=== PATIENT | female | born 1985 ===

== ENCOUNTER 2024-07-27 06:28 | Day surgery (SDC) | payer BC, SELFPAY ==
[2024-07-14 10:00] VITALS: BMI 21.9
[2024-07-14 10:56] LABS: Hematocrit 36.3 % (37.0-47.0); Hemoglobin 12.8 g/dL (12.0-16.0); Mean Corp Hgb Conc. 35.3 g/dL (33.0-37.0); Mean Corpuscular Hgb 30.5 pg (27.0-31.0); Mean Corpuscular Volume 86.6 fL (81.0-99.0); Mean Platelet Volume 10.8 fL (7.4-10.4); Platelet Count 242 10^3/uL (130-400); Red Blood Cell Count 4.19 10^6/uL (4.20-5.40); Red Cell Dist. Width 11.9 % (11.5-14.5); White Blood Cell Count 5.3 10^3/uL (4.8-10.8)
[2024-07-14 11:19] LABS: ALT (SGPT) 28 U/L (0-35); AST (SGOT) 26 U/L (14-36); Albumin 4.4 g/dl (3.5-5.0); Alkaline Phosphatase 36 U/L (38-126); Blood Urea Nitrogen 11 mg/dl (7-17); Calcium 8.9 mg/dl (8.4-10.2); Carbon Dioxide 29 mmol/L (22-30); Chloride 101 mmol/L (98-107); Estimated Creatinine Clearance 69 ml/min; Glucose 81 mg/dl (70-99); Potassium 3.6 mmol/L (3.5-5.1); Sodium 143 mmol/L (135-145); Total Bilirubin 0.2 mg/dl (0.2-1.3); Total Protein 6.6 g/dl (6.3-8.2); eGFR > 60.00
[2024-07-14 11:38] LABS: % Basophils 0.2 % (0-2); % Eosinophils 1.9 % (0-6); % Immature Granulocytes 0.2 % (0-0.5); % Lymphocytes 42.9 % (20.5-51.1); % Neutrophils 47.8 % (42.2-75.2); Absolute Eosinophils 0.1 10^3/uL (0-0.7); Absolute Lymphocytes 2.3 10^3/uL (1.2-3.4); Absolute Monocytes 0.4 10^3/uL (0.1-0.6); Absolute Neutrophils 2.6 10^3/uL (1.4-6.5); Nucleated Red Blood Cells % 0 %
--- NOTE | 2024-07-26 06:21 | HPS.HSE ---
Family Physician
-
Family Physician: ANDREAS Chan
Chief Complaint
-
NA
History of Present Illness
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
smears�due�to�ongoing�pregnancies.�ervical�biopsy�shows�HSIL�LELI�2,�ECC�shows�fragments�of�high�grade squamous�dysplasia.�LEEP�procedure�was�performed�Roxann��that�shows�focal�dysplastic�epithelium�present�near�the
endocervical�margin�at�3�6�o'clock,�ECC�shows�multiple�disrupted�fragments�of�HSIL.�Given�these�results�she�was�advised�to undergo�conization.�On�[place]�1�she�underwent�a�cold�knife�cone�biopsy�which�resulted�with�HSIL�ELLI�3,�resection�margins
are�negative�for�HSIL.�There�is�diffuse�p16�and�increased�Ki�67�proliferative�index.�ECC�shows�again�fragments�of�high�grade squamous�intraepithelial�lesion.�This�case�was�reviewed�with�me�by�Dr�Parameshwaran.�Decision�was�made�to�have�a�second
opinion�prior�to�next�steps.
Surgical�History C��section/�07/04/2015,� ,Kidney�stone�removal/�2006,2009,2019 leep�12/26/2023 conization/�
Allergies amoxicillin
Medications
sertraline�100�mg�tablet 03/29/2024 0 1�p.o.�q.�day
Wellbutrin�SR�150�mg�tablet,�12�hr�sustainedrelease
Social�History Patient�denies�ever�using�tobacco. Social�use�of�alcohol. special�education�coordinator Patient�has�not�had�any�occupational�exposure. Marital�Status:�Patient�is� Gynecological�History
Age�at�Menarche�13�years.�Patient�reports�2�pregnancies.�Her�age�at�first�full�term��was�29�years. Family�Medical�History Maternal�aunt�/�breast�cancer obesity/�mother hypertension/�mother,�father
Medical History
Past Medical History
Past Medical History: Reports None
Past Surgical History: Reports None
Social History
Alcohol: Occasional
Drug: None
Family History
Family History: Not pertinent
Allergies / Home Medications
Allergies reflects when Allergies were last updated in [facility].
Home Medications with original date entered in [facility]
Allergy/Medication List:
amoxicillin
Review of Systems
-
History Source: Patient
A 12 point ROS was completed and negative except as noted: Yes
Physical Exam
Vital Signs
Physical�Exam
Pelvic�Examination:�motor coach driver�present External�normal�labia,�urethra,�anus.� Vagina:�Normal�mucosa.� Cervix:�scarred�appearance,�no�discharge.�pap�done Uterus:�normal�size.� Adnexa:�No�pelvic�mass.� RVE:�no�masses�or�nodularity
General:�Well�developed,�well�nourished�patient.�In�no�acute�distress.
Neck:�No�thyromegaly.�No�cervical�lymphadenopathy.
Lungs:�Clear�to�auscultation.�Good�air�movement�bilaterally.
Cardiac:�Regular�rate.�Regular�rhythm.�No�murmurs�appreciated.
Right�Breast:�No�masses�or�dimpling.�No�nipple�discharge. Left�Breast:�No�masses�or�dimpling.�No�nipple�discharge. Abdomen:�Abdomen�is�soft.�Non�tender�to�palpation.�Non�distended.
Extremities:�No�edema. Hematologic/Lymphatic:�No�palpable�lymphadenopathy. Musculoskeletal:�Normal�range�of�motion.�Strength�and�Tone�are�normal.
Skin:Non�jaundiced.�No�petechia.�No�purpura.
Neurologic:�Speech�is�fluent.�Normal�gait�and�station.�Cranial�nerves�intact.
Physical Exam
General: Well Developed
HEENT: NormoCephalic
Respiratory: Clear and Non Labored Respirations
Cardiac: S1/S2 and Regular Rhythm
GI: Soft, Non Tender and Non Distended
Laboratory Results
-
07/14/24 09:12
07/14/24 09:12
Laboratory Results
Total Bilirubin 0.2 mg/dl (0.2-1.3) 07/14/24 09:12
AST 26 U/L (14-36) 07/14/24 09:12
ALT 28 U/L (0-35) 07/14/24 09:12
Alkaline Phosphatase 36 U/L (38-126) L 07/14/24 09:12
MRI pelvis:
Technique: Pre- and postcontrast MRI of the pelvis was performed on a 3 Mikayla superconducting magnet utilizing a standard protocol. Intravenous contrast: 10 cc MultiHance Contrast or Injection Event: None Comparison: CT abdomen and pelvis 03/17/2020
Findings: Uterus: The uterus is anteverted and retroflexed measuring 9.8 x 6.2 x 4.7 cm (length x width x height). scars are noted in the anterior lower uterine segment. The contours of the uterus are otherwise smooth. The myometrium is
normal and homogeneous in signal intensity. There are no fibroids. Cervix: Normal in signal intensity without focal abnormality or enhancing lesion. Endometrium: The endometrium is normal in thickness measuring 9 mm. Junctional zone: The junctional
zone is normal in appearance measuring 7 mm. Ovaries: The right ovary is normal in size and appearance measuring 2.1 x 1.4 cm. The left ovary measures 3.5 x 2.6 cm and contains a 2.1 cm simple dominant follicle. Other abdominal and pelvis organs:
There is no hydronephrosis. There are a few bilateral renal cysts. The gallbladder is normally distended without calculi, wall thickening or pericholecystic fluid. Visualized loops of small and large bowel are normal in caliber without wall
thickening. The urinary bladder is almost completely decompressed, limiting evaluation. Lymph nodes: No lymphadenopathy. Vasculature: The abdominal aorta is normal in caliber with patent major branch vessels. Osseous structures: No suspicious bone
marrow signal. There are degenerative changes in the lower lumbar spine. Other: A small amount of simple free fluid is present. Impression: 1. No cervical mass visualized. 2. Anterior lower uterine segment scars, otherwise normal appearing
uterus.
Data Reviewed
-
Diagnostic Radiology: Image Personally Visualized and interpreted
Impression/Plan
-
IMPRESSION:
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
neoplasms.�She�had�a�couple�of�procedures�resulting�in�diagnosis�of�CIN3.�at�last�cone�biopsy�she�still�has�CIN3�at�ECC.�there�is concern�for�residual�disease.�Options�discussed.�option�of�preservation�of�uterus�reviewed�vs�definitive�hysterectomy.�
I�recommend�a�baseline�MRI�pelvis�w�IV�contrast.this�was�normal.�
Pap�was�done,�ECC�is�hard�to�do,�as�cervix�looks�stenotic.� Recommendation�is�for�surgical�treatment�going�forward,�we�will�proceed�with�robotic�assisted�total�laparoscopic�hysterectomy,
type,�with�sentinel�lymph�node�excision,�with�the�assumption�of�microscopic�early�cervix�cancer.�
Patient�would�like�to�postpone�this probably�through�early�November.�
I�will�ask�her�to�get�labs�done�she�will�have�a�visit�with�her�primary�care�physician.�
PLAN:
[2024-07-27] VITALS (9 sets, daily range): BP systolic 108–124; BP diastolic 68–76; BMI 21.9
[2024-07-27] MEDS: TYLENOL 1000 MG PO (09:38)
[2024-07-27] MEDS: CELEBREX 200 MG PO (09:38)
[2024-07-27] MEDS: HEPARIN 5000 UNITS SC (09:39)
[2024-07-27] MEDS: NEURONTIN 300 MG PO (09:39)
[2024-07-27] MEDS: ZOFRAN 4 MG IV (13:12)
[2024-07-27] MEDS: TORADOL 15 MG IV (14:17)
[2024-07-27] MEDS: ROXICODONE 5 MG PO (15:00)
[2024-07-27] MEDS: TYLENOL 650 MG PO (15:29)
--- NOTE | 2024-07-27 16:16 | OR.RPT ---
Operative Report
Operative Report
Date of procedure: July 27, 2024
Preoperative diagnosis: Carcinoma in situ of the cervix, cervical stenosis and shortening with inability to perform any additional conization
Postop diagnosis: pending final pathology
Procedure:
Robotic assisted modified laparoscopic radical hysterectomy, bilateral salpingectomy,
injection of cervix with ICG dye
robotic assisted laparoscopic bilateral sentinel pelvic lymphadenectomy
TAP block
Surgeon: Wil Moy
Assist: Ryan Graves PA-C, JORDAN Diaz
Anesthesia: General , ET
EBL: 50 cc
complications: none
Procedure: This patient was brought to the operating room and placed in supine position, general anesthesia was administered, she was intubated without any difficulty. She was placed in lithotomy position using yellowfin stirrups and prepped on the
abdomen perineum and vagina. Sanabria catheter was inserted for bladder drainage. Arms were protected with foam and all joints including shoulders were attended to and protected. Timeout procedure was carried out, she received Ancef and Flagyl. She
had received heparin subcutaneous injection in the preop region. The patient was draped. Speculum exam of the vagina was performed, the cervix is flush with upper vagina and there is no definable exocervix. I grasped but was palpably cervix and
created a cruciate incision and placed a portion of the uterine manipulator within that area. 3 cm FRANK ring was used on the vaginal apex. I injected the cervix with ICG dye at 3 and 9:00 in 4 locations at a depth of 5 mm for mapping and
identification of sentinel lymph nodes. Next we turned our attention abdominally. Veress needle was inserted just below the subcostal margin. Insufflation with CO2 gas was performed up to pressure of 15 mmHg. Next 8 mm XI robotic ports were
placed 25 cm cephalad to symphysis pubis, and additional 8 mm ports were placed right and left upper quadrant and right and left lateral abdomen. Tap block was performed under direct visualization with a total of 30 cc ropivacaine 0.5% diluted with
an additional 30 cc sterile saline equally injected 2 fingerbreadths below the right and left lateral subcostal level. Once this was completed patient was placed in 28 degree Trendelenburg and attention was turned to the pelvis right and left round
ligaments were sealed and divided anterior and posterior leaves of the broad ligament were dissected open, the uterine fundus was completely adherent to the anterior abdominal wall with fibrotic adhesions. The IP ligaments were preserved.
Fallopian tube was elevated on both right and left side mesosalpinx was sealed and divided and the tubal attachment to the uterus was removed and cut and both tubes were submitted to pathology. Next the course of ureter was identified in the
retroperitoneum. A window was created below the ovaries and both ovaries were detached from the uterus and they were hemostatic.
I used the near infrared system to identify sentinel lymph nodes that were located at the mid external iliac arteries on right and left sides and these were submitted to pathology. Next we followed the course of the uterine artery and ligated the
uterine artery at the level of crossing of the ureter. Bladder flap was difficult to develop because of the adhesions on the anterior cul-de-sac and extra work was required including significant adhesiolysis to eventually identify the cervix and
take the bladder below the level of the cervix. The parametria adjacent to the uterus was identified. The medial aspect of the parametria was removed uterosacral ligaments were cut at fdc point between the point of insertion to sacrum.
Circumferential incision was made over the FRANK ring until the specimen was completely detached. Uterus and cervix upper vagina and parametria was submitted to pathology. The vaginal apex was closed with 0 Vicryl suture ligature in a
[id number] fashion. Both the right and left apices. V-Loc was used to close the cuff starting from right to the left side and back to the right side. All pedicles were irrigated and there was no evidence of bleeding
Robotic system was undocked, all laparoscopic ports were closed with 4-0 Monocryl in a subcuticular fashion. The vagina was inspected and there was no lacerations. Sanabria catheter was removed. Patient was awakened extubated and returned back to
recovery room stable awake and extubated condition. Counts of laps instruments and needle was correct x 2. I was present and scrubbed for entire procedure as dictated above.
Disposition: To PACU stable awake extubated.
--- NOTE | 2024-07-27 16:29 | W.PN.UPDATE ---
Update Note
Progress Note Update
I was called to see the patient in the recovery room in approximately 3:25 PM. The right lateral port site appeared to have a collection underneath it. It was nontender and the patient did not have any nausea or vomiting. The collection appeared
to be fluctuant. The incision had already been sutured and glue had been applied. Her vital signs were stable. I went ahead and established the sterile field and proceeded to open the incision and removed the subcuticular sutures. I drained a
fresh collection of bright red blood approximately 20 cc. I was unable to identify a bleeding vessel despite exploration. 3 [id number] sutures of 4-0 Monocryl was placed in a mattress fashion to close the incision and a pressure dressing was
applied. A CBC was sent. I reexamined the incision and approximately an hour and there was no evidence of active bleeding and there was no evidence of collection. Patient is deemed stable for discharge after the results of CBC are available.
[2024-07-27 16:51] LABS: Hematocrit 33.7 % (37.0-47.0); Hemoglobin 11.9 g/dL (12.0-16.0); Mean Corp Hgb Conc. 35.3 g/dL (33.0-37.0); Mean Corpuscular Hgb 30.7 pg (27.0-31.0); Mean Corpuscular Volume 86.9 fL (81.0-99.0); Mean Platelet Volume 9.9 fL (7.4-10.4); Platelet Count 206 10^3/uL (130-400); Red Blood Cell Count 3.88 10^6/uL (4.20-5.40); Red Cell Dist. Width 12.2 % (11.5-14.5); White Blood Cell Count 12.9 10^3/uL (4.8-10.8)
== END 2024-07-27 17:07 | disposition home or self-care (01) ==
LOC: SDS 06:28
PROVIDERS: ATTENDING PHYSICIAN Obstetrics & Gynecology Gynecologic Oncology; FAMILY PHYSICIAN Nurse Practitioner Family
DX: D06.9 Carcinoma in situ of cervix, unspecified (principal); N88.2 Stricture and stenosis of cervix uteri
CPT/HCPCS: 58571; 38570; 88305; 88307; 88309; 36415; 80053; 85025; 85027; 86850; 86900; 86901; 88342; 93005